=== PATIENT | male | born 1990 | race Caucasian/White ===

== ENCOUNTER 2017-09-13 15:10 | Emergency (ER) | payer MEDICAID ==
[~2017-09-13] VITALS: Ht 182.9 cm; Wt 90.7 kg
[2017-09-13 15:28] VITALS: BP_SYST 145
[2017-09-13] MEDS ORDERED: FLUCONAZOLE 200 MG TABLET (DIFLUCAN) PO ONE (17:00)
[2017-09-13 17:23] VITALS: BP_SYST 145
== END 2017-09-13 17:23 | disposition home or self-care (01) ==
LOC: SED 15:10
DX: B35.3 Tinea pedis (principal); R03.0 Elevated blood-pressure reading, without diagnosis of hypertension
CPT/HCPCS: 99283